=== PATIENT | female | born 1945 | race Caucasian/White ===

== ENCOUNTER 2016-12-08 09:57 | Day surgery (SDC) | payer MEDICARE, OTHER ==
--- NOTE | 2016-09-28 08:30 | HP ---
DATE OF CLINIC: 09/20/2016 NELLY WORLEY : 1945 PLANNED PROCEDURE: Right Knee Arthroscopic Medial Meniscectomy and Debridement DATE OF PROCEDURE: September 29, 2016 SURGEON: Dr. Jorgito Puckett PCP: Dr. Leilani Coleman HISTORY OF PRESENT ILLNESS Nelly Worley is a 70 year old female. * Medication list reviewed with patient allergy list reviewed with patient. 70-year-old female known to us in the past for multiple orthopedic issues who I recently saw for evaluation of her right knee. She was getting out of her jeep last spring, came down on a loaded, flexed right knee, felt a twist and it "gave out". Since then she has had difficulty with painful buckling. Pain has been more medial and posteriorly. She has had persistent symptomatology despite therapy. Workup has included an MRI scan that is available for my review. It demonstrates some patellofemoral and lateral chondromalacia with a radial tear of the posterior horn of the medial meniscus. Given the persistent symptoms, she is interested in elective arthroscopy with partial meniscectomy/debridement. We discussed both operative and non-operative management. She presents today preoperatively. Comorbidities include hypertension, hypothyroidism and a history of a DVT after ankle surgery. She also has osteoporosis which is being treated with injection therapy. CURRENT MEDICATION * AmLODIPine Besylate 5 MG Tablet 1 twice a day 90 days, 0 refills * Aromasin 25 MG Tablet 1 once a day also know as exemestane, 0 days, 0 refills * Aspirin 325 MG Tablet 1 once a day 0 days, 0 refills * Calcium-Magnesium Complex 1000-500 MG-MG Tablet Chewable as directed 0 days, 0 refills * Labetalol HCl 300 MG Tablet 1 once a day 1 in the evening, 0 days, 0 refills * Levothyroxine Sodium 50 MCG Tablet as directed alternate with 75mg, 0 days, 0 refills * Levothyroxine Sodium 75 MCG Tablet once a day 0 days, 0 refills * Liothyronine Sodium 5 MCG Tablet 1/2 tablet every day 0 days, 0 refills * Losartan Potassium 100 MG Tablet 1 once a day 0 days, 0 refills * prilosec Tablet 1 once a day 0 days, 0 refills * Prolia 60 MG/ML Solution as directed injection every 6 months, 0 days, 0 refills * Singulair 10 MG Tablet 1 once a day also know as Montelukast, 0 days, 0 refills * Vitamin D3 400 UNIT Tablet as directed 0 days, 0 refills * Vitamin E 400 UNIT Capsule as directed 0 days, 0 refills PAST MEDICAL/SURGICAL HISTORY Reported: Medical: A previous fracture, cancer Breast, Reported numbness Left foot, Reported tingling left foot, cardiac history, history of Arthritis in fingers, Thyroid Disorder, Fainting [place] Epilepsy in high school, Venous thrombosis following ankle surgery, and Osteoporosis. Surgical / Procedural: Surgical / procedural history Lt shoulder scope RC repair 11/28/[address] Encarnacion Left ankle hardware removal 04/20/13 at [facility] with Eddie Lind MD, bunion removed, lumpectomy 06/2012, Thyroidectomy 1996, and Hysterectomy 1989. Tests: A mammogram was abnormal 8-9 oclock Right breast linear calcifications. : Never nursed children and age at first was 27 years old. Diagnoses: ABNORMAL MAMMOGRAM Surgical: * Thyroid surgery Total thyroidectomy for Graves * Hysterectomy 1987 SOCIAL HISTORY Behavioral: Quit smoking stopped smoking in 1967 after smoking a quarter of a pack a day for 2 years. Smoking status: Former smoker. Work: Occupation Retired. Right shoulder mass after dancing in the [employer]. Patient felt a pop and noted a swollen area about the shoulder. Her pain has since resolved. She does notice something palpable under the skin. ALLERGIES * Dairy Products * Grass Pollen * Kenalog Reaction: steroid flare * Prednisone * Sulfa Drugs FAMILY HISTORY Father ill heart disease 3 children living Thyroid removed Bunion Broken ankle Hysterectomy Family medical history None listed REVIEW OF SYSTEMS Systemic: No fever and no recent weight change. Head: No head symptoms. Cardiovascular: No cardiovascular symptoms. Pulmonary: No pulmonary symptoms. Gastrointestinal: No gastrointestinal symptoms. Psychological: No psychological symptoms. Skin: No skin lesions and no rash. PHYSICAL FINDINGS * Vitals taken 09/16/2016 03:10 pm BP-Sitting L 119/64 mmHg 100 - 120/56 - 80 BP Cuff Size Regular Pulse Rate-Sitting 77 bpm 50 - 100 Respiration Rate 16 per min 18 - 26 Temp-Oral 98.1 F 96 - 101 Height 66 in 59 - 68 Weight 194 lbs 96 - 178 Body Mass Index 31.3 kg/m2 Body Surface Area 1.97 m2 Pain Level 4 Ears, Nose, Throat: * ENT: normal. Lungs: * Clear to auscultation. Cardiovascular: Heart Rate and Rhythm: * Normal. Abdomen: * Normal. Neurological: Motor: * Dominant Hand = Right Hand. Patient is an obese female in no acute distress, normal appearing mood and affect. She ambulates with a stiff-legged, heel-to-toe gait, worse at startup. Evaluation of the right knee shows skin integrity to be well preserved, no wounds, rashes or lesions. Trace effusion, no focal swelling other than posterior fullness. Motion is just shy of full extension to 125 degrees of flexion. She is reproducibly tender over the medial joint-line and has pain with Giuseppe's, NT laterally. No pain with patellar compression. Ligamentous exam is intact for cruciates and collaterals. NT in the proximal tibia. Calf is soft and NT. Distal light touch sensation and motor function are intact and symmetric. Pulses are palpable. Gentle rotation of the hip is non-irritable. Contralateral knee shows full, non-irritable motion. TESTS 4 views obtained previously show central irregularity of the median ridge of the patella. Alignment is relatively well preserved. She has mild narrowing without secondary degenerative changes of the medial compartment. MRI is as above ASSESSMENT DJD, right knee, with superimposed medial meniscal tear. THERAPY * Patient fall risk screen negative. * Patient eligible for fall risk assessment. * Patient received fall risk assessment. PLAN * Arthroscopy of the knee with medial meniscectomy -Right with debridement Discussed with patient in detail the limitations, expectations as well as risks and possible complications of surgery including, but not limited to wound problems or infection, neurovascular injury, continued knee pain or dysfunction including the possibility of progression over time that may require additional operative or non-operative treatment. Patient also realizes the perioperative risks including risks associated with anesthesia and would like to proceed. A full PAR conference was held, questions and concerns addressed and informed consent was obtained. Patient will be sent from my office for completion of the preoperative workup. CARE TEAM Lila Whelan MD Radiation Oncology Rebeka Felix MD Hematology & Oncology Jerald Mayfield MD Cardiovascular Disease Leilani Coleman MD [facility] MULUGETA/sg
--- NOTE | 2016-12-07 10:51 | HP ---
DATE OF CLINIC: 11/25/2016 NELLY WORLEY : 1945 PLANNED PROCEDURE: Right Knee Arthroscopic Medial Meniscectomy DATE OF PROCEDURE: December 08, 2016 SURGEON: Jorgito Puckett M.D. PCP: Dr. Leilani Coleman HISTORY OF PRESENT ILLNESS Nelly Worley is a 71 year old female. * Medication list reviewed with patient allergy list reviewed with patient. Mrs. Worley is in today pre-operatively for her upcoming right knee arthroscopy with Dr. Puckett on 12/08/16. Patient presents in good spirits and is ready to proceed. Patient notes she's had some recent inflammation and a small dehiscence develop over an old incision on her left ankle in the last week. This may have occurred while playing with her grandson. She has not had complications with the wound otherwise. She did have a long period of induration following ORIF of her left ankle remotely with Dr. Lind. Patient also had pulmonary emboli following the same procedure. She otherwise denies prior surgical complications, illness, or change in health. Her recent consult with Dr. Puckett follows: 70-year-old female known to us in the past for multiple orthopedic issues who I recently saw for evaluation of her right knee. She was getting out of her jeep last spring, came down on a loaded, flexed right knee, felt a twist and it "gave out". Since then she has had difficulty with painful buckling. Pain has been more medial and posteriorly. She has had persistent symptomatology despite therapy. Workup has included an MRI scan that is available for my review. It demonstrates some patellofemoral and lateral chondromalacia with a radial tear of the posterior horn of the medial meniscus. Given the persistent symptoms, she is interested in elective arthroscopy with partial meniscectomy/debridement. We discussed both operative and non-operative management. She presents today preoperatively. Comorbidities include hypertension, hypothyroidism and a history of a DVT after ankle surgery. She also has osteoporosis which is being treated with injection therapy. CURRENT MEDICATION * AmLODIPine Besylate 5 MG Tablet 1 twice a day 90 days, 0 refills * Aromasin 25 MG Tablet 1 once a day also know as exemestane, 0 days, 0 refills * Aspirin 325 MG Tablet 1 once a day 0 days, 0 refills * Calcium-Magnesium Complex 1000-500 MG-MG Tablet Chewable as directed 0 days, 0 refills * Labetalol HCl 300 MG Tablet 1 once a day 1 in the evening, 0 days, 0 refills * Levothyroxine Sodium 50 MCG Tablet as directed alternate with 75mg, 0 days, 0 refills * Levothyroxine Sodium 75 MCG Tablet once a day 0 days, 0 refills * Liothyronine Sodium 5 MCG Tablet 1/2 tablet every day 0 days, 0 refills * Losartan Potassium 100 MG Tablet 1 once a day 0 days, 0 refills * prilosec Tablet 1 once a day 0 days, 0 refills * Prolia 60 MG/ML Solution as directed injection every 6 months, 0 days, 0 refills * Singulair 10 MG Tablet 1 once a day also know as Montelukast, 0 days, 0 refills * Vitamin D3 400 UNIT Tablet as directed 0 days, 0 refills * Vitamin E 400 UNIT Capsule as directed 0 days, 0 refills PAST MEDICAL/SURGICAL HISTORY Reported: Medical: A previous fracture, cancer Breast, Reported numbness Left foot, Reported tingling left foot, cardiac history, history of Arthritis in fingers, Thyroid Disorder, Fainting [place] Epilepsy in high school, Venous thrombosis following ankle surgery, and Osteoporosis. Surgical / Procedural: Surgical / procedural history Lt shld scope RC repair 11/28/[address] Encarnacion Left ankle hardware removal 04/20/13 at [facility] with Eddie Lind MD, bunion removed, lumpectomy 06/2012, Thyroidectomy 1996, and Hysterectomy 1989. Tests: A mammogram was abnormal 8-9 o'clock Right breast linear calcifications. : Never nursed children and age at first was 27 years old. Diagnoses: ABNORMAL MAMMOGRAM Surgical: * Thyroid surgery Total thyroidectomy for Graves * Hysterectomy 1987 SOCIAL HISTORY Behavioral: Quit smoking stopped smoking in 1967 after smoking a quarter of a pack a day for 2 years. Smoking status: Former smoker. Work: Occupation Retired. Right shoulder mass after dancing in the [email or web address] [place]. Patient felt a pop and noted a swollen area about the shoulder. Her pain has since resolved. She does notice something palpable under the skin. ALLERGIES * Dairy Products * Grass Pollen * Kenalog Reaction: steroid flare * Prednisone * Sulfa Drugs FAMILY HISTORY Father ill heart disease 3 children living Thyroid removed Bunion Broken ankle Hysterectomy Family medical history None listed REVIEW OF SYSTEMS Systemic: No fever and no recent weight change. Head: No head symptoms. Cardiovascular: No cardiovascular symptoms. Pulmonary: No pulmonary symptoms. Gastrointestinal: Gastrointestinal symptoms GERD. Psychological: No psychological symptoms. Skin: No skin lesions and no rash. PHYSICAL FINDINGS * Vitals taken 11/25/2016 11:17 am BP-Sitting L 118/70 mmHg 100 - 120/56 - 80 BP Cuff Size Regular Pulse Rate-Sitting 67 bpm 50 - 100 Temp-Oral 97.2 F 96 - 101 Height 66 in 59 - 68 Weight 197 lbs 96 - 178 Body Mass Index 31.8 kg/m2 Body Surface Area 1.99 m2 Pain Level 4 Ears, Nose, Throat: * ENT: normal. Lungs: * Clear to auscultation. Cardiovascular: Heart Rate and Rhythm: * Normal. Abdomen: * Normal. Neurological: Motor: * Dominant Hand = Right Hand. Patient is an obese female in no acute distress, normal appearing mood and affect. She ambulates with a stiff-legged, heel-to-toe gait, worse at startup. Evaluation of the right knee shows skin integrity to be well preserved, no wounds, rashes or lesions. Trace effusion, no focal swelling other than posterior fullness. Motion is just shy of full extension to 125 degrees of flexion. She is reproducibly tender over the medial joint-line and has pain with Giuseppe's, NT laterally. No pain with patellar compression. Ligamentous exam is intact for cruciates and collaterals. NT in the proximal tibia. Calf is soft and NT. Distal light touch sensation and motor function are intact and symmetric. Pulses are palpable. Gentle rotation of the hip is non-irritable. Contralateral knee shows full, non-irritable motion. TESTS 4 views obtained previously show central irregularity of the median ridge of the patella. Alignment is relatively well preserved. She has mild narrowing without secondary degenerative changes of the medial compartment. MRI is as above. ASSESSMENT * Localized primary osteoarthritis of the right knee * Acute complex tear of medial meniscus DJD, right knee, with superimposed medial meniscal tear. THERAPY * Patient fall risk screen negative. * Patient eligible for fall risk assessment. * Patient received fall risk assessment. PLAN * Arthroscopy of the knee with medial meniscectomy -Right Discussed with patient in detail the limitations, expectations as well as risks and possible complications of surgery including, but not limited to wound problems or infection, neurovascular injury, continued knee pain or dysfunction including the possibility of failure over time that may require additional operative or non-operative treatment. Patient also realizes the perioperative risks including risks associated with anesthesia and would like to proceed. A full PAR conference was held, questions and concerns addressed and informed consent was obtained. Patient will be sent from my office for completion of the preoperative workup. CARE TEAM Lila Whelan MD Radiation Oncology Rebeka Felix MD Hematology & Oncology Jerald Mayfield MD Cardiovascular Disease Leilani Coleman MD Family Practice CC: Leilani Coleman MD [facility] RS/sg
[~2016-12-08 09:57] MED LIST: BUPIVACAINE 0.25% EPI PF 30 ML VIAL ONE; FENTANYL 100 MCG/2 ML VIAL ONE; LIDOCAINE 2% (PRES FREE) 5 ML VIAL ONE; MIDAZOLAM HCL 1 MG/ML 2ML VIAL ONE; PROPOFOL 20 ML IV ONE
[2016-12-08] MEDS ORDERED: CEFAZOLIN SODIUM 2 GRAM PREMIX 100 ML IV PRN (10:00)
[2016-12-08] MEDS ORDERED: LACTATED RINGERS 1,000 ML ONE ×3 (10:08→14:23)
[2016-12-08] MEDS ORDERED: IV START KIT ONE (10:09)
[2016-12-08] MEDS ORDERED: CEFAZOLIN SODIUM 2 GRAM PREMIX 100 ML IV ONE (10:10)
[2016-12-08] MEDS ORDERED: MORPHINE SULFATE (DURAMORPH) 1 MG/ML 10ML AMP ONE (12:50)
[2016-12-08] MEDS ORDERED: LIDOCAINE 2% (PRES FREE) 5 ML VIAL ONE (13:21)
[2016-12-08] MEDS ORDERED: DIPHENHYDRAMINE HCL 50 MG/1 ML VIAL ONE (13:21)
[2016-12-08] MEDS ORDERED: DEXAMETHASONE SOD PHOS 4 MG/1 ML VIAL ONE (13:21)
[2016-12-08] MEDS ORDERED: PROPOFOL 20 ML IV ONE (13:21)
[2016-12-08] MEDS ORDERED: ONDANSETRON 4 MG/2ML 2 ML VIAL ONE (13:21)
[2016-12-08] MEDS ORDERED: PROMETHAZINE HCL 25 MG/ML VIAL IM PRN (13:26)
[2016-12-08] MEDS ORDERED: NALOXONE HCL 0.4 MG/ML VIAL IV PRN (13:26)
[2016-12-08] MEDS ORDERED: ONDANSETRON 4 MG/2ML 2 ML VIAL IV PRN ×2 (13:26→14:45)
[2016-12-08] MEDS ORDERED: HYDROMORPHONE HCL 1 MG/ML SYRINGE IV PRN ×2 (13:26→14:45)
[2016-12-08] MEDS ORDERED: ATROPINE SULFATE 0.4 MG/1 ML VIAL IV PRN (13:26)
[2016-12-08] MEDS ORDERED: LACTATED RINGERS 1,000 ML IV SCH (13:30)
[2016-12-08] MEDS ORDERED: EPHEDRINE SULFATE UD SYR 25 MG 25 MG/5 ML SYRINGE IV ONE ×2 (13:31→13:41)
[2016-12-08] MEDS ORDERED: FENTANYL 100 MCG/2 ML VIAL ONE ×2 (14:18→14:32)
[2016-12-08] MEDS: FENTANYL 100 MCG/2 ML VIAL IV PRN ×3 (14:21→14:36)
--- NOTE | 2016-12-08 14:26 | PCMBPN ---
Brief Post Op Note: Date of Procedure: 12/08/16 Preoperative Diagnosis: DJD, MMT right knee Postoperative Diagnosis: DJD right knee MMT/LMT Procedure: scope MM/LM Surgeon: Jorgito Puckett MD Anesthesia: general ([place]) Condition: stable to PAR Complications: none IV Fluids: per anesthesia Estimated Blood Loss: nil Tourniquet Time: [N/A] Specimens: [N/A] Drains: [N/A]
[2016-12-08] MEDS ORDERED: KETOROLAC TROMETHAMINE 30 MG/ML 1 ML VIAL IV PRN (14:45)
[2016-12-08] MEDS ORDERED: ACETAMINOPHEN 325 MG TABLET PO PRN (14:45)
[2016-12-08] MEDS ORDERED: SODIUM CHLORIDE 0.9% 1,000 ML IV SCH (14:45)
[2016-12-08] MEDS ORDERED: HYDROCODONE/ACETAMINOPHEN 5/325MG TABLET PO PRN (14:45)
[2016-12-08] MEDS ORDERED: HYDROMORPHONE HCL 0.5 MG/0.5 ML SYRINGE IV PRN (14:49)
[2016-12-08] MEDS ORDERED: HYDROCODONE/ACETAMINOPHEN 5/325MG TABLET ONE (15:13)
--- NOTE | 2016-12-09 10:10 | OP ---
TONJA DIAZ [id number] : 1945 DATE OF SURGERY: December 08, 2016 PREOPERATIVE DIAGNOSIS: Right knee DJD with superimposed medial meniscal tear. POSTOPERATIVE DIAGNOSIS: 1. Right knee DJD. 2. Medial meniscal tear, right knee. 3. Lateral meniscal tear, right knee. PROCEDURE: 1. Right knee arthroscopic partial medial and lateral meniscectomies. 2. Arthroscopic debridement, patella, right knee. SURGEON: Jorgito Puckett M.D. ESTIMATED BLOOD LOSS: Minimal ANESTHESIA: General FLUIDS: IV replacement per anesthesia. TOURNIQUET TIME: Zero DRAINS: None COMPLICATIONS: None INDICATION: Patient is a 71-year-old female with clinical and radiographic history most consistent with right knee DJD with superimposed medial meniscal tear. They have failed to improve with traditional nonoperative treatments and would like to proceed with elective arthroscopic evaluation and treatment. PAR conference was held, questions and concerns were addressed, and informed consent was obtained. For additional details, please refer to the previously dictated preoperative History and Physical Exam. OPERATIVE FINDINGS: A complete diagnostic knee arthroscopy was performed with the following findings: The suprapatellar pouch was clean. Patellofemoral joint showed II-B changes median ridge with some changes proximal medial ridge, fairly focal. There was grade IV eburnation of the medial femoral condyle over the medial 1/3 of the medial femoral condyle. This was contained. Medial compartment had thinning of the posterior horn of the meniscus with a radial degenerative tear at the junction of the body and posterior horn. There were grade II-B changes central aspect of the femoral condyle with grade I changes central tibial plateau. Notch showed intact ACL. The lateral compartment had a small radial tear at the root and then an anterior horn lateral meniscal tear that was degenerative in appearance. There were grade I changes of the tibial surface. Femoral articular surface was intact. PROCEDURAL DESCRIPTION: Patient was taken to the operating room. General anesthesia was induced and a laryngeal masked airway was placed. The lower extremity was prepped and draped out in the usual sterile fashion. Examination under anesthesia was normal. After sterile prep and drape the knee was injected with 45 mL of 0.25% Marcaine with epinephrine. A medial suprapatellar and lateral peripatellar portal were initially established followed by a medial peripatellar portal under direct intraarticular visualization. A standard 4.0 mm 30 degree arthroscope was used. An arthroscopic pump system was utilized. A photographic record was made. A complete diagnostic knee arthroscopy was then performed with findings as discussed above. We turned our attention initially to the medial compartment. A combination of arthroscopic shuts and a 3.5 shaver were used to debride the tear back to a stable base smoothing the transition zone medially into the body. We then evacuated the medial compartment of debris and passed the scope into the lateral compartment. Similarly we used a 3.5 shaver to debride the small radial tear posteriorly as well as the anterior horn tear. After evacuating the lateral compartment we passed the scope into the patellofemoral articulation and used the 3.5 shaver to debride the area of unstable patellar chondromalacia as previously described. Satisfied, after copious irrigation we removed the cannulas and closed the portal sites with interrupted 4-0 Nylon. The knee was injected with an additional 15 mL of 0.25% Marcaine with epinephrine plus 5mg of intraarticular Morphine. A sterile compression wrap was applied. The patient was then awakened, extubated, transferred to their hospital bed and sent to post anesthesia recovery in stable condition. The patient tolerated the procedure well. Sponge, instrument and needle count were correct. MULUGETA/henrietta CC: [place] Nixon Coleman MD
== END 2016-12-08 17:05 | disposition home or self-care (01) ==
LOC: SDC 09:57
PROVIDERS: ATTEND Orthopaedic Surgery
PROC: 0SBC4ZZ Excision of Right Knee Joint, Percutaneous Endoscopic Approach (ICD-10-PCS; principal; 2016-12-08)
PROC: 0SBC4ZZ Excision of Right Knee Joint, Percutaneous Endoscopic Approach (ICD-10-PCS; 2016-12-08)
PROC: 0SBC0ZZ Excision of Right Knee Joint, Open Approach (ICD-10-PCS; 2016-12-08)
DX: S83.231A Complex tear of medial meniscus, current injury, right knee, initial encounter (principal); S83.281A Other tear of lateral meniscus, current injury, right knee, initial encounter; M17.11 Unilateral primary osteoarthritis, right knee; M22.41 Chondromalacia patellae, right knee; I10 Essential (primary) hypertension; E03.9 Hypothyroidism, unspecified; K21.9 Gastro-esophageal reflux disease without esophagitis; M81.0 Age-related osteoporosis without current pathological fracture; Z79.82 Long term (current) use of aspirin; Z87.891 Personal history of nicotine dependence; Z86.718 Personal history of other venous thrombosis and embolism; Z88.2 Allergy status to sulfonamides; Z88.8 Allergy status to other drugs, medicaments and biological substances
CPT/HCPCS: 29880; G0289

== ENCOUNTER 2016-12-11 11:13 | Emergency (ER) | payer MEDICARE, OTHER ==
[2016-12-11] MEDS ORDERED: IOPAMIDOL 370 (76%) 100 ML VIAL IV ONE (11:14)
[2016-12-11 11:41] LABS: ABSOLUTE NEUTROPHIL COUNT 4.6 K/mm3 (1.8-7.7); BASO # 0.1 K/mm3 (0.0-0.2); BASO % 0.9 % (0.2-1.0); EOS # 0.2 (0.0-0.5); EOS % 2.6 % (0.9-2.9); HEMOGLOBIN 11.9 gm/l (12.0-16.0); IMM NEUT% 0.4 % (0-1); LYMPH # 2.5 (1.0-4.8); LYMPH % 31.2 % (15-45); MEAN CELL VOLUME 95.9 fl (81.0-99.0); MEAN CORPUSCULAR HEMOGLOBIN 30.8 pg (27.0-31.0); MEAN CORPUSCULAR HGB CONC 32.2 g/dl (33.0-37.0); MEAN PLATELET VOLUME 10.3 fl (7.4-10.4); MONO # 0.6 (0.0-0.8); MONO % 7.5 % (4-12); NEUT % 57.4 % (43-75); PLATELET COUNT 263 K/mm3 (130-400); RED CELL DISTRIBUTION WIDTH 13.2 % (11.5-14.5)
[2016-12-11] MEDS ORDERED: SODIUM CHLORIDE 0.9% 1,000 ML ONE (11:44)
[2016-12-11 11:59] LABS: ALB/GLOB RATIO 1.3 (>1.0); ALBUMIN 4.2 gm/dL (3.5-5.7); CALCIUM 9.2 mg/dL (8.6-10.3)
[2016-12-11 12:10] LABS: D-DIMER 1.18 mg/L FEU (0.20-0.50); INR 0.92; PROTHROMBIN TIME 9.7 SECONDS (9.3-11.4)
--- NOTE | 2016-12-11 12:54 | CT ---
CTA CHEST FOR PE History: Postop knee surgery with dyspnea. Comparison: 09/30/2013 and 07/24/2008. Procedure: 1 mm axial images were obtained through the chest following the administration of 80cc's of Isovue-370 intravenous contrast. Stacked reconstructed 3 mm images were then photographed in the axial, coronal and sagittal planes. 3-D reconstructed MIP images were also performed on the scanner workstation. Findings: Images demonstrate a normal appearance of the visualized thyroid gland. There is no suggested mediastinal adenopathy. Mild soft tissue prominence within the hilar regions suggests mild hilar adenopathy however. The aortic caliber is within expected. The heart size is prominent. No pericardial abnormalities are seen. The esophagus is appropriate. There are no suggested filling defects identified within the main, primary or secondary pulmonary arterial branches to suggest the presence of a pulmonary embolus. There are dependent atelectatic changes identified. No effusion or pneumothorax is observed. Scans through the upper abdomen appear to be unremarkable. No discrete osseous abnormalities are observed. Impression: 1. No current findings of a pulmonary embolus visualized. 2. Mild hilar adenopathy. 3. Cardiomegaly. 4. Dependent atelectatic changes. The findings were called to Dr. Villafuerte at time of examination.
--- NOTE | 2016-12-11 13:48 | US ---
DUPLX SCAN VEIN EXT UNI RT History: Calf pain. Findings: Ultrasonography of the right lower extremity was performed, with grayscale color and Doppler technique utilizing evaluation of the lower extremity. There is adequate compressibility of the deep venous system without current findings of deep venous thrombosis. Normal responses are seen to augmentation and Valsalva maneuvers. Normal respiratory variation is observed as well. Impression: 1. A right lower extremity ultrasound which currently appears negative, with no current findings of deep venous thrombosis observed.
== END 2016-12-11 14:22 | disposition home or self-care (01) ==
LOC: ED 11:13
DX: R06.02 Shortness of breath (principal); Z86.711 Personal history of pulmonary embolism; Z79.82 Long term (current) use of aspirin; Z98.890 Other specified postprocedural states
CPT/HCPCS: 85379; 85025; 82550; 80053; 85610; 84484; 71275; 99284 ×2; 93971; J7030; Q9967